=== PATIENT | male | born 1985 | race Caucasian/White ===

== ENCOUNTER 2017-08-21 16:55 | Emergency (ER) | payer OTHER ==
[~2017-08-21] VITALS: Ht 170.2 cm; Wt 81.7 kg
[~2017-08-21 16:55] MED LIST: NOHOMEMEDICATIONS; NORCO 5-325 TA1 EACH PO
[2017-08-21] MEDS ORDERED: PERCOCET 5-3251 EACH PO (17:42)
[2017-08-21] MEDS ORDERED: NAPROSYN500 MG PO (17:42)
[2017-08-21 18:20] VITALS: BP 150/89
== END 2017-08-21 18:20 | disposition home or self-care (01) ==
LOC: M.ERS 16:55
DX: S93.492A Sprain of other ligament of left ankle, initial encounter (principal); Z88.5 Allergy status to narcotic agent; W18.42XA Slipping, tripping and stumbling without falling due to stepping into hole or opening, initial encounter; Y93.89 Activity, other specified; Y92.89 Other specified places as the place of occurrence of the external cause; Y99.8 Other external cause status

== ENCOUNTER 2017-12-08 19:00 | Emergency (ER) | payer OTHER ==
[~2017-12-08] VITALS: Ht 172.7 cm; Wt 81.7 kg
[~2017-12-08 19:00] MED LIST changes: +NAPROSYN500 MG PO; +PERCOCET 5-3251 EACH PO
[2017-12-08] MEDS ORDERED: COZAAR 50 MG TA50 M2 (19:15)
[2017-12-08 19:33] LABS: HEMATOCRIT 41.1 % (42.0-52.0); HEMOGLOBIN 14.2 gm/dL (14.0-18.0); MCHC 34.6 g/dL (28.0-37.0); MCV 95.4 fL (80.0-100.0); MPV 7.3 fl. (7.2-11.1); NUCLEATED RBCS 0 /100WBC; PLATELET COUNT* 304 thou/uL (150-400); RBC 4.31 mil/uL (4.50-6.00); RDW-CV 13.5 % (10.5-14.5); WBC 11.6 thou/uL (4.0-11.0)
[2017-12-08 19:34] LABS: URINE BILIRUBIN NEGATIVE (Negative); URINE BLOOD NEGATIVE (Negative); URINE CLARITY CLEAR; URINE COLOR STRAW; URINE GLUCOSE-RANDOM NEGATIVE (Negative); URINE KETONES NEGATIVE (Negative); URINE LEUKOCYTES-REFLEX NEGATIVE (Negative); URINE NITRITE-REFLEX NEGATIVE (Negative); URINE PROTEIN NEGATIVE (Negative); URINE SPECIFIC GRAVITY <= 1.005 (1.005-1.030); URINE UROBILINOGEN 0.2 E.U./dl (0.2-1.0)
[2017-12-08 19:42] LABS: ANION GAP 8 mmol/L (7-16); BUN 8 mg/dL (7-18); CALCIUM 8.2 mg/dL (8.5-10.1); CHLORIDE 101 mmol/L (98-107); CO2 26 mmol/L (21-32); CREATININE 1.1 mg/dL (0.6-1.3); GLUCOSE 155 mg/dL (70-99); POTASSIUM 3.3 mmol/L (3.5-5.1); SODIUM 135 mmol/L (136-145)
[2017-12-08 19:42] LABS: AMP/METHAMP Negative (Negative); BARBITURATES Negative (Negative); BENZODIAZEPINES Negative (Negative); COCAINE Negative (Negative); METHADONE Negative (Negative); OPIATES Negative (Negative); PCP Negative (Negative); THC Negative (Negative)
[2017-12-08 19:49] LABS: ALBUMIN 3.4 g/dL (3.4-5.0); ALKALINE PHOSPHATASE 103 U/L (46-116); SGOT 66 U/L (15-37); SGPT 181 U/L (30-65); TOTAL BILIRUBIN 0.2 mg/dL (<0.1-1.0); TOTAL PROTEIN 7.2 g/dL (6.4-8.2); TROPONIN-I LEVEL <0.06 ng/mL (<0.06)
[2017-12-08 20:15] LABS: ABSOLUTE EOSINOPHILS 0.3 thou/uL (0.0-0.7); ABSOLUTE LYMPHOCYTES 3.9 thou/uL (0.8-5.3); ABSOLUTE MONOCYTES 0.8 thou/uL (0.0-1.2); ABSOLUTE NEUTROPHILS 6.5 thou/uL (1.6-8.1); METAMYELOCYTES 3 %; MYELOCYTES 1 %; PLATELET ESTIMATE ADEQUATE
[2017-12-09 01:31] VITALS: BP 142/81
== END 2017-12-09 01:31 | disposition home or self-care (01) ==
LOC: M.ERS 19:00
PROVIDERS: Emergency Medicine
DX: F10.129 Alcohol abuse with intoxication, unspecified (principal); Y90.8 Blood alcohol level of 240 mg/100 ml or more; Z88.5 Allergy status to narcotic agent; Z90.49 Acquired absence of other specified parts of digestive tract; Z79.899 Other long term (current) drug therapy

== ENCOUNTER 2018-03-16 19:22 | Emergency (ER) | payer OTHER ==
[~2018-03-16] VITALS: Ht 172.7 cm; Wt 104.3 kg
[~2018-03-16 19:22] MED LIST changes: +COZAAR 50 MG TA50 M2
[2018-03-16] MEDS ORDERED: HYDROCHLOROTH12.5 M1 PO (19:32)
[2018-03-16] MEDS ORDERED: TORADOL 10 MG T10 MG PO (20:37)
[2018-03-16] MEDS ORDERED: ROBAXIN 750 MG750 M1 PO (20:37)
[2018-03-16] MEDS ORDERED: NORCO 5-325 TA1 EACH PO (20:37)
[2018-03-16 20:48] VITALS: BP 135/76
== END 2018-03-16 20:53 | disposition home or self-care (01) ==
LOC: M.ERS 19:22
DX: M84.48XA Pathological fracture, other site, initial encounter for fracture (principal); I10 Essential (primary) hypertension; Z90.49 Acquired absence of other specified parts of digestive tract; F17.210 Nicotine dependence, cigarettes, uncomplicated; Z88.5 Allergy status to narcotic agent

== ENCOUNTER 2018-09-15 11:25 | Emergency (ER) | payer OTHER ==
[~2018-09-15] VITALS: Ht 172.7 cm; Wt 104.3 kg
[~2018-09-15 11:25] MED LIST changes: +HYDROCHLOROTH12.5 M1 PO; +ROBAXIN 750 MG750 M1 PO; +TORADOL 10 MG T10 MG PO
[2018-09-15 12:06] LABS: URINE BILIRUBIN NEGATIVE (Negative); URINE BLOOD NEGATIVE (Negative); URINE CLARITY CLEAR; URINE COLOR YELLOW; URINE GLUCOSE-RANDOM NEGATIVE (Negative); URINE KETONES NEGATIVE (Negative); URINE LEUKOCYTES-REFLEX NEGATIVE (Negative); URINE NITRITE-REFLEX NEGATIVE (Negative); URINE PROTEIN 2+ (Negative); URINE UROBILINOGEN 0.2 E.U./dl (0.2-1.0)
[2018-09-15 12:14] LABS: ABSOLUTE BASOPHILS 0.1 thou/uL (0.0-0.2); ABSOLUTE EOSINOPHILS 0.3 thou/uL (0.0-0.7); ABSOLUTE LYMPHOCYTES 1.7 thou/uL (0.8-5.3); ABSOLUTE MONOCYTES 1.2 thou/uL (0.0-1.2); ABSOLUTE NEUTROPHILS 9.2 thou/uL (1.6-8.1); BASOPHILS 0.4 %; EOSINOPHILS 2.1 %; HEMATOCRIT 41.1 % (42.0-52.0); HEMOGLOBIN 14.3 gm/dL (14.0-18.0); LYMPHOCYTES 13.9 %; MCH 32.6 pg (26.0-34.0); MCHC 34.7 g/dL (28.0-37.0); MCV 93.8 fL (80.0-100.0); MONOCYTES 9.7 %; MPV 7.5 fl. (7.2-11.1); NUCLEATED RBCS 0 /100WBC; PLATELET COUNT* 259 thou/uL (150-400); POLYS 73.9 %; RBC 4.39 mil/uL (4.50-6.00); RDW-CV 13.6 % (10.5-14.5); WBC 12.5 thou/uL (4.0-11.0)
[2018-09-15 12:17] LABS: SQUAMOUS 0-3 Few /LPF (0-3)
[2018-09-15 12:18] LABS: URINE RBC 0-2 Rare /HPF (0-2); URINE WBC-REFLEX 0-5 Rare /HPF (0-5)
[2018-09-15 12:20] LABS: BACTERIA-REFLEX >30 Many /HPF (None Seen); MUCUS None Seen strn/LPF (None Seen)
[2018-09-15 12:21] LABS: CRYSTALS None Seen /LPF (None Seen); HYALINE CASTS 0-3 Few /LPF (None Seen)
[2018-09-15 12:34] LABS: CALCIUM 9.5 mg/dL (8.5-10.1); CREATININE 2.3 mg/dL (0.6-1.3); POTASSIUM 3.9 mmol/L (3.5-5.1)
[2018-09-15 12:39] LABS: ALBUMIN 4.3 g/dL (3.4-5.0); TOTAL BILIRUBIN 0.6 mg/dL (<0.1-1.0); TOTAL PROTEIN 8.2 g/dL (6.4-8.2)
[2018-09-15] MEDS ORDERED: NORCO 5-325 TA1 EACH PO (13:22)
[2018-09-15] MEDS ORDERED: KEFLEX500 M1 PO (13:22)
[2018-09-15 13:45] VITALS: BP 138/84
== END 2018-09-15 13:40 | disposition home or self-care (01) ==
LOC: M.ERS 11:25
PROVIDERS: Family Medicine
DX: R10.30 Lower abdominal pain, unspecified (principal); R11.2 Nausea with vomiting, unspecified; I10 Essential (primary) hypertension; Z88.5 Allergy status to narcotic agent